=== PATIENT | female | born 1935 | race Caucasian/White ===

== ENCOUNTER 2017-06-13 18:54 | Inpatient (IN) | payer MEDICARE ==
[~2017-06-13] VITALS: Ht 157.5 cm; Wt 79.0 kg
[~2017-06-13 18:54] MED LIST: ACET-2782 PO; CEPH500T PO; TRAM-355 PO
[2017-06-13 19:46] LABS: BASOPHILS % (AUTO) 0.3 % (0.0-5.0); EOSINOPHILS % (AUTO) 0.1 % (0.0-8.0); HEMATOCRIT 40.3 % (36-48); LYMPHOCYTES % (AUTO) 5.2 % (21.0-51.0); MEAN CORPUSCULAR HEMOGLOBIN 30.2 pg (27.0-33.0); MEAN CORPUSCULAR HGB CONC 33.8 g/dL (32.0-36.0); MEAN CORPUSCULAR VOLUME 89.2 fL (79-99); MONOCYTES % (AUTO) 2.7 % (3.0-13.0); NEUTROPHILS % (AUTO) 91.7 % (40.0-77.0); PLATELET COUNT (AUTO) 265 K/uL (130-400); RED BLOOD CELL COUNT(AUTO) 4.52 MIL/uL (4.00-5.50); RED CELL DISTRIBUTION WIDTH 13.8 % (11.0-15.5); WHITE BLOOD COUNT (AUTO) 16.5 K/uL (4.8-10.8)
[2017-06-13] MEDS ORDERED: ONDANSETRON HCL 4 MG/2 ML VIAL ONE ×2 (19:51→22:36)
[2017-06-13] MEDS ORDERED: ACETAMINOPHEN EXTRA STRENGTH 500 MG TABLET ONE (19:52)
[2017-06-13] MEDS ORDERED: SODIUM CHLORIDE 0.9% 1000ML 3,000 ML IV ONE (19:52)
[2017-06-13 19:56] LABS: INR 1.15 (0.85-1.15)
[2017-06-13 20:01] LABS: CREATININE 1.2 mg/dL (0.5-1.5); POTASSIUM 4.5 mmol/L (3.5-5.1)
[2017-06-13 20:04] LABS: ALBUMIN 2.9 g/dL (3.5-5.0); TOTAL PROTEIN, SERUM 8.1 g/dL (6.0-8.3)
[2017-06-13] MEDS ORDERED: ZOSYN 3.375GM+NS 50ML 50 ML IV ONE (20:35)
[2017-06-13] MEDS ORDERED: LIDOCAINE HCL 2% JELLY 5 ML ONE (22:01)
[2017-06-13] MEDS ORDERED: MORPHINE SULFATE 4 MG/1ML SYG ONE (22:36)
[2017-06-13] MEDS ORDERED: HYDRALAZINE HCL 20 MG/ML VIAL IV PRN (23:45)
[2017-06-14] VITALS (7 sets, daily range): BP systolic 113–143; BP diastolic 52–79
[2017-06-14] MEDS: SODIUM CHLORIDE 0.9% 1000ML 1,000 ML IV SCH ×3 (01:13→20:02)
[2017-06-14] MEDS: ZOSYN 3.375GM+NS 50ML 50 ML IV SCH ×3 (04:53→20:02)
[2017-06-14] MEDS ORDERED: ZOSYN 3.375GM+NS 50ML 50 ML IV SCH (05:00)
[2017-06-14] MEDS: FAMOTIDINE/PF 20 MG/2 ML VIAL IV SCH ×2 (09:27→20:02)
[2017-06-14 09:30] LABS: HEMATOCRIT 35.3 % (36-48); MEAN CORPUSCULAR HEMOGLOBIN 30.9 pg (27.0-33.0); MEAN CORPUSCULAR HGB CONC 34.1 g/dL (32.0-36.0); MEAN CORPUSCULAR VOLUME 90.5 fL (79-99); PLATELET COUNT (AUTO) 246 K/uL (130-400); RED CELL DISTRIBUTION WIDTH 13.9 % (11.0-15.5); WHITE BLOOD COUNT (AUTO) 11.8 K/uL (4.8-10.8)
[2017-06-14 09:37] LABS: CREATININE 0.9 mg/dL (0.5-1.5); POTASSIUM 3.7 mmol/L (3.5-5.1)
[2017-06-14] MEDS: MORPHINE SULFATE 2 MG/ML 1ML SYG IV PRN ×2 (10:09→20:13)
[2017-06-14] MEDS ORDERED: BISACODYL 10 MG SUPP.RECT RC SCH (12:30)
[2017-06-14 18:44] LABS: APPEARANCE,URINE Clear (CLEAR); BILIRUBIN,URINE Negative (NEGATIVE); COLOR,URINE Yellow (YELLOW); GLUCOSE, URINE (UA) Negative (NEGATIVE); KETONES,URINE 15 mg/dL (NEGATIVE); LEUKOCYTE ESTERASE ,URINE Negative (NEGATIVE); NITRATE,URINE Negative (NEGATIVE); OCCULT BLOOD,URINE Small (NEGATIVE); PH,URINE 5.5 (5.0-8.0); PROTEIN,URINE POS 1+ (NEGATIVE)
[2017-06-14 19:39] LABS: BACTERIA,URINE None Seen /HPF (None Seen); WBC,URINE 0-1 /HPF (0-1)
[2017-06-15 03:00] VITALS: BP 144/65
[2017-06-15] MEDS: ZOSYN 3.375GM+NS 50ML 50 ML IV SCH ×3 (03:56→20:49)
[2017-06-15] MEDS: SODIUM CHLORIDE 0.9% 1000ML 1,000 ML IV SCH ×2 (05:53→20:50)
[2017-06-15 07:58] LABS: BASOPHILS % (AUTO) 0.3 % (0.0-5.0); EOSINOPHILS % (AUTO) 0.2 % (0.0-8.0); HEMATOCRIT 38.4 % (36-48); MEAN CORPUSCULAR HEMOGLOBIN 30.4 pg (27.0-33.0); MEAN CORPUSCULAR HGB CONC 33.7 g/dL (32.0-36.0); MEAN CORPUSCULAR VOLUME 90.3 fL (79-99); MONOCYTES % (AUTO) 4.8 % (3.0-13.0); NEUTROPHILS % (AUTO) 82.7 % (40.0-77.0); PLATELET COUNT (AUTO) 314 K/uL (130-400); RED BLOOD CELL COUNT(AUTO) 4.25 MIL/uL (4.00-5.50); RED CELL DISTRIBUTION WIDTH 13.8 % (11.0-15.5); WHITE BLOOD COUNT (AUTO) 11.9 K/uL (4.8-10.8)
[2017-06-15 08:00] VITALS: BP 149/69
[2017-06-15 08:17] LABS: CREATININE 0.9 mg/dL (0.5-1.5); POTASSIUM 3.6 mmol/L (3.5-5.1)
[2017-06-15] MEDS: FAMOTIDINE/PF 20 MG/2 ML VIAL IV SCH ×2 (08:48→20:51)
[2017-06-15] MEDS ORDERED: MORPHINE SULFATE 4 MG/1ML SYG ONE (09:28)
[2017-06-15] MEDS: MORPHINE SULFATE 2 MG/ML 1ML SYG IV PRN ×2 (09:38→20:51)
[2017-06-15 12:09] VITALS: BP 137/68
[2017-06-15 16:00] VITALS: BP 150/75
[2017-06-15 19:00] VITALS: BP_SYST 139; BP_SYST 155; BP_DIAS 79; BP_DIAS 80
[2017-06-15] MEDS: OSELTAMIVIR PHOSPHATE 75 MG CAP PO SCH (20:51)
[2017-06-15 23:00] VITALS: BP 176/77
[2017-06-16] MEDS: SODIUM CHLORIDE 0.9% 1000ML 1,000 ML IV SCH ×4 (00:45→20:47)
[2017-06-16 03:00] VITALS: BP 158/77
[2017-06-16] MEDS: ZOSYN 3.375GM+NS 50ML 50 ML IV SCH ×3 (04:03→20:47)
[2017-06-16 08:00] VITALS: BP 145/72
[2017-06-16] MEDS: OSELTAMIVIR PHOSPHATE 75 MG CAP PO SCH ×2 (08:59→20:47)
[2017-06-16] MEDS: FAMOTIDINE/PF 20 MG/2 ML VIAL IV SCH ×2 (08:59→20:47)
[2017-06-16 12:00] VITALS: BP 145/68
[2017-06-16 16:00] VITALS: BP 153/62
[2017-06-16] MEDS: MORPHINE SULFATE 2 MG/ML 1ML SYG IV PRN (16:52)
[2017-06-16 19:55] VITALS: BP 154/76
[2017-06-16] MEDS: GUAIFENESIN-DM 200/20 MG 10 ML PO PRN (20:47)
[2017-06-16 23:31] VITALS: BP 137/82
[2017-06-17] VITALS (12 sets, daily range): BP systolic 131–169; BP diastolic 55–78
[2017-06-17] MEDS: ZOSYN 3.375GM+NS 50ML 50 ML IV SCH ×3 (03:44→22:38)
[2017-06-17 04:17] LABS: BASOPHILS % (AUTO) 0.3 % (0.0-5.0); EOSINOPHILS % (AUTO) 0.5 % (0.0-8.0); LYMPHOCYTES % (AUTO) 11.8 % (21.0-51.0); MEAN CORPUSCULAR HEMOGLOBIN 30.8 pg (27.0-33.0); MEAN CORPUSCULAR HGB CONC 34.2 g/dL (32.0-36.0); MEAN CORPUSCULAR VOLUME 90.1 fL (79-99); NEUTROPHILS % (AUTO) 81.4 % (40.0-77.0); NUCLEATED RED BLOOD CELLS 0.1 % (0.0-0.19); PLATELET COUNT (AUTO) 294 K/uL (130-400); RED BLOOD CELL COUNT(AUTO) 3.89 MIL/uL (4.00-5.50); RED CELL DISTRIBUTION WIDTH 13.6 % (11.0-15.5)
[2017-06-17 04:24] LABS: CREATININE 0.7 mg/dL (0.5-1.5)
[2017-06-17 04:25] LABS: POTASSIUM 2.8 mmol/L (3.5-5.1)
[2017-06-17] MEDS ORDERED: POTASSIUM CHLORIDE 20MEQ/100ML 100 ML IV PRN (05:15)
[2017-06-17] MEDS ORDERED: LIDOCAINE HCL-MPF 1% 2ML VIAL IVP PRN (05:15)
[2017-06-17] MEDS ORDERED: POTASSIUM CHLORIDE 10% ELIXIR 20 MEQ/15 ML UDCUP PO PRN (05:15)
[2017-06-17] MEDS ORDERED: LIDOCAINE HCL-MPF 1% 2ML VIAL ONE (05:17)
[2017-06-17] MEDS ORDERED: POTASSIUM CHLORIDE 20MEQ/100ML 100 ML IV ONE (05:17)
[2017-06-17] MEDS: SODIUM CHLORIDE 0.9% 1000ML 1,000 ML IV SCH ×2 (05:25→22:39)
[2017-06-17] MEDS ORDERED: DIATR MEGLU/DIATRIZOATE SODIUM 30 ML BOTTLE PO ONE (06:00)
[2017-06-17] MEDS ORDERED: IOPAMIDOL-370 75 ML VIAL IV ONE (07:53)
[2017-06-17] MEDS: MORPHINE SULFATE 2 MG/ML 1ML SYG IV PRN ×2 (08:17→22:40)
[2017-06-17] MEDS: FAMOTIDINE/PF 20 MG/2 ML VIAL IV SCH ×2 (09:00→22:39)
[2017-06-17] MEDS: OSELTAMIVIR PHOSPHATE 75 MG CAP PO SCH ×2 (09:00→22:39)
[2017-06-17] MEDS ORDERED: FENTANYL CITRATE PF 50 MCG/1 ML 2ML VIAL ONE (13:57)
[2017-06-17] MEDS: POTASSIUM CHLORIDE 20 MEQ ERTAB PO PRN (22:42)
[2017-06-18 00:07] VITALS: BP 151/77
[2017-06-18] MEDS: POTASSIUM CHLORIDE 20 MEQ ERTAB PO PRN ×2 (01:50→04:59)
[2017-06-18 03:40] VITALS: BP 160/71
[2017-06-18] MEDS: SODIUM CHLORIDE 0.9% 1000ML 1,000 ML IV SCH ×2 (04:58→18:14)
[2017-06-18] MEDS: ZOSYN 3.375GM+NS 50ML 50 ML IV SCH ×3 (04:59→21:16)
[2017-06-18 08:00] VITALS: BP 139/75
[2017-06-18] MEDS: FAMOTIDINE/PF 20 MG/2 ML VIAL IV SCH ×2 (08:35→21:16)
[2017-06-18] MEDS: OSELTAMIVIR PHOSPHATE 75 MG CAP PO SCH ×2 (08:35→21:16)
[2017-06-18] MEDS ORDERED: LACTATED RINGERS 1000ML 1,000 ML IV SCH (10:00)
[2017-06-18] MEDS: GUAIFENESIN-DM 200/20 MG 10 ML PO PRN ×2 (10:53→21:26)
[2017-06-18 12:00] VITALS: BP 144/68
[2017-06-18 16:00] VITALS: BP 126/69
[2017-06-18 20:00] VITALS: BP 152/62
[2017-06-19] VITALS (8 sets, daily range): BP systolic 108–164; BP diastolic 60–80
[2017-06-19 03:57] LABS: BASOPHILS % (AUTO) 0.6 % (0.0-5.0); EOSINOPHILS % (AUTO) 0.6 % (0.0-8.0); HEMATOCRIT 34.7 % (36-48); LYMPHOCYTES % (AUTO) 13.5 % (21.0-51.0); MEAN CORPUSCULAR HEMOGLOBIN 30.7 pg (27.0-33.0); MEAN CORPUSCULAR VOLUME 90.2 fL (79-99); MONOCYTES % (AUTO) 4.9 % (3.0-13.0); NEUTROPHILS % (AUTO) 80.4 % (40.0-77.0); PLATELET COUNT (AUTO) 295 K/uL (130-400); RED BLOOD CELL COUNT(AUTO) 3.85 MIL/uL (4.00-5.50); RED CELL DISTRIBUTION WIDTH 13.8 % (11.0-15.5); WHITE BLOOD COUNT (AUTO) 10.7 K/uL (4.8-10.8)
[2017-06-19 04:04] LABS: CREATININE 0.7 mg/dL (0.5-1.5); MAGNESIUM 1.4 mg/dL (1.80-2.40)
[2017-06-19] MEDS: ZOSYN 3.375GM+NS 50ML 50 ML IV SCH ×3 (04:07→21:31)
[2017-06-19] MEDS: POTASSIUM CHLORIDE 20 MEQ ERTAB PO PRN (04:55)
[2017-06-19] MEDS: MORPHINE SULFATE 2 MG/ML 1ML SYG IV PRN (06:45)
[2017-06-19] MEDS: FAMOTIDINE/PF 20 MG/2 ML VIAL IV SCH ×2 (09:38→21:30)
[2017-06-19] MEDS: OSELTAMIVIR PHOSPHATE 75 MG CAP PO SCH ×2 (09:39→21:31)
[2017-06-19] MEDS: ACETAMINOPHEN-CODEINE 300/30MG TAB PO PRN ×2 (13:21→21:30)
[2017-06-19] MEDS: GUAIFENESIN-DM 200/20 MG 10 ML PO PRN ×2 (13:21→21:30)
[2017-06-19] MEDS ORDERED: MAGNESIUM 2GM PREMIX 50ML 50 ML IV NR (16:00)
[2017-06-20 04:00] VITALS: BP 147/76
[2017-06-20] MEDS: ZOSYN 3.375GM+NS 50ML 50 ML IV SCH ×3 (04:28→22:19)
[2017-06-20 07:03] LABS: CREATININE 0.8 mg/dL (0.5-1.5); MAGNESIUM 1.8 mg/dL (1.80-2.40); POTASSIUM 3.2 mmol/L (3.5-5.1)
[2017-06-20 08:00] VITALS: BP 145/71
[2017-06-20] MEDS: FAMOTIDINE/PF 20 MG/2 ML VIAL IV SCH ×2 (09:53→22:19)
[2017-06-20] MEDS: OSELTAMIVIR PHOSPHATE 75 MG CAP PO SCH (09:53)
[2017-06-20 11:00] VITALS: BP 145/71
[2017-06-20] MEDS: POTASSIUM CHLORIDE 20 MEQ ERTAB PO PRN ×3 (13:24→18:35)
[2017-06-20] MEDS ORDERED: TRAMADOL HCL 50 MG TABLET PO PRN (18:45)
[2017-06-20] MEDS ORDERED: BENZONATATE 100 MG CAPSULE PO PRN (18:45)
[2017-06-20] MEDS ORDERED: LACTULOSE 20 GM/30 ML UDCUP PO PRN (18:45)
[2017-06-20 20:00] VITALS: BP 141/68
[2017-06-20] MEDS: ACETAMINOPHEN-CODEINE 300/30MG TAB PO PRN (22:19)
[2017-06-20] MEDS: GUAIFENESIN-DM 200/20 MG 10 ML PO PRN (22:19)
[2017-06-21] VITALS (7 sets, daily range): BP systolic 122–156; BP diastolic 67–82
[2017-06-21] MEDS: ZOSYN 3.375GM+NS 50ML 50 ML IV SCH ×2 (05:37→14:29)
[2017-06-21] MEDS: FAMOTIDINE/PF 20 MG/2 ML VIAL IV SCH (10:33)
[2017-06-21] MEDS ORDERED: DIATR MEGLU/DIATRIZOATE SODIUM 30 ML BOTTLE PO ONE (10:36)
[2017-06-21] MEDS ORDERED: IOPAMIDOL-370 75 ML VIAL IV ONE ×2 (15:49→15:53)
[2017-06-21] MEDS: LEVOFLOXACIN 500 MG TABLET PO SCH (21:01)
[2017-06-22 04:25] VITALS: BP 155/67
[2017-06-22 08:00] VITALS: BP 132/68
[2017-06-22] MEDS: FAMOTIDINE/PF 20 MG/2 ML VIAL IV SCH (10:39)
[2017-06-22] MEDS: GUAIFENESIN-DM 200/20 MG 10 ML PO PRN ×2 (10:39→21:44)
[2017-06-22 11:00] VITALS: BP 126/65
[2017-06-22 16:00] VITALS: BP 135/69
[2017-06-22 20:18] VITALS: BP 145/77
[2017-06-22] MEDS: LEVOFLOXACIN 500 MG TABLET PO SCH (21:43)
[2017-06-22 23:13] VITALS: BP 151/61
[2017-06-23 03:15] VITALS: BP 145/69
[2017-06-23 07:00] VITALS: BP 136/69
[2017-06-23] MEDS: GUAIFENESIN-DM 200/20 MG 10 ML PO PRN (08:39)
[2017-06-23] MEDS: FAMOTIDINE/PF 20 MG/2 ML VIAL IV SCH (08:39)
[2017-06-23 11:00] VITALS: BP 145/71
[2017-06-23 16:00] VITALS: BP 141/75
== END 2017-06-23 16:40 | disposition home or self-care (01) | DRG 872 ==
LOC: EDH 18:54 → EDHIP 23:44 → 3BH 06-14 00:40
PROVIDERS: ADMIT Family Medicine; ATTEND Family Medicine
PROC: 0D9670Z Drainage of Stomach with Drainage Device, Via Natural or Artificial Opening (ICD-10-PCS; 2017-06-13)
PROC: 0W9G30Z Drainage of Peritoneal Cavity with Drainage Device, Percutaneous Approach (ICD-10-PCS; principal; 2017-06-17)
DX: A41.9 Sepsis, unspecified organism (principal); K56.609 Unspecified intestinal obstruction, unspecified as to partial versus complete obstruction; K57.20 Diverticulitis of large intestine with perforation and abscess without bleeding; E44.1 Mild protein-calorie malnutrition; K81.9 Cholecystitis, unspecified; J10.1 Influenza due to other identified influenza virus with other respiratory manifestations; E87.6 Hypokalemia; K57.30 Diverticulosis of large intestine without perforation or abscess without bleeding; I10 Essential (primary) hypertension; Z68.31 Body mass index [BMI] 31.0-31.9, adult; J20.9 Acute bronchitis, unspecified; E66.9 Obesity, unspecified; B96.20 Unspecified Escherichia coli [E. coli] as the cause of diseases classified elsewhere; Z90.49 Acquired absence of other specified parts of digestive tract; Z83.3 Family history of diabetes mellitus; Z82.49 Family history of ischemic heart disease and other diseases of the circulatory system; Z80.3 Family history of malignant neoplasm of breast; Z79.82 Long term (current) use of aspirin
CPT/HCPCS: 10030; 36415; 71010; 74018; 74021; 74176; 74177; 77012; 80048; 80053; 81001; 83605; 83690; 83735; 85025; 85027; 85610; 85730; 87040; 87071; 87088; 87205; 87804; 93005; 99291; J2270; J2405; J2543; J3010; J3475; J3480; J3490; J7030; Q9963; Q9967

== ENCOUNTER 2017-07-01 09:18 | Inpatient (IN) | payer MEDICARE ==
[~2017-07-01] VITALS: Ht 152.4 cm; Wt 77.1 kg
[2017-07-01] MEDS ORDERED: MEROPENEM 1 GM VIAL ONE ×2 (10:12→20:47)
[2017-07-01] MEDS ORDERED: SODIUM CHLORIDE 0.9% 1000ML 1,000 ML IV ONE ×3 (10:13→17:54)
[2017-07-01 10:18] LABS: APPEARANCE,URINE Cloudy (CLEAR); BILIRUBIN,URINE Small (NEGATIVE); COLOR,URINE Orange (YELLOW); GLUCOSE, URINE (UA) Negative (NEGATIVE); KETONES,URINE Trace mg/dL (NEGATIVE); LEUKOCYTE ESTERASE ,URINE Moderate (NEGATIVE); NITRATE,URINE Positive (NEGATIVE); OCCULT BLOOD,URINE Small (NEGATIVE); PROTEIN,URINE POS 1+ (NEGATIVE)
[2017-07-01 10:18] LABS: BASOPHILS % (AUTO) 0.5 % (0.0-5.0); HEMATOCRIT 33.2 % (36-48); MEAN CORPUSCULAR HEMOGLOBIN 30.3 pg (27.0-33.0); MEAN CORPUSCULAR HGB CONC 33.9 g/dL (32.0-36.0); MEAN CORPUSCULAR VOLUME 89.4 fL (79-99); MONOCYTES % (AUTO) 8.5 % (3.0-13.0); NEUTROPHILS % (AUTO) 83.4 % (40.0-77.0); NUCLEATED RED BLOOD CELLS 0.1 % (0.0-0.19); PLATELET COUNT (AUTO) 357 K/uL (130-400); RED BLOOD CELL COUNT(AUTO) 3.71 MIL/uL (4.00-5.50); RED CELL DISTRIBUTION WIDTH 13.8 % (11.0-15.5); WHITE BLOOD COUNT (AUTO) 14.6 K/uL (4.8-10.8)
[2017-07-01 10:26] LABS: LYMPHOCYTES % (AUTO) 7.6 % (21.0-51.0)
[2017-07-01 10:38] LABS: CREATININE 1.2 mg/dL (0.5-1.5); POTASSIUM 4.4 mmol/L (3.5-5.1)
[2017-07-01 10:38] LABS: BACTERIA,URINE Few /HPF (None Seen); RBC,URINE 0-1 /HPF (0-1); SQUAMOUS EPITHELIAL CELL,UR Moderate /LPF (0-2); YEAST,URINE BUDDING Few /HPF (None Seen)
[2017-07-01 10:39] LABS: MUCUS,URINE Many LPF (None Seen)
[2017-07-01 10:42] LABS: ALBUMIN 2.7 g/dL (3.5-5.0); BILIRUBIN,TOTAL 0.9 mg/dL (0.2-1.0); TOTAL PROTEIN, SERUM 7.3 g/dL (6.0-8.3)
[2017-07-01] MEDS ORDERED: IOPAMIDOL-370 75 ML VIAL IV ONE (10:56)
[2017-07-01] MEDS ORDERED: ACETAMINOPHEN EXTRA STRENGTH 500 MG TABLET ONE (16:49)
[2017-07-01] MEDS ORDERED: METRONIDAZOLE 500MG/100ML BAG 100 ML ONE (17:54)
[2017-07-01 22:07] VITALS: BP 118/56
[2017-07-01] MEDS: SODIUM CHLORIDE 0.9% 1000ML 1,000 ML IV SCH (23:00)
[2017-07-01 23:56] VITALS: BP 108/56
[2017-07-02] VITALS (11 sets, daily range): BP systolic 104–150; BP diastolic 50–69
[2017-07-02] MEDS ORDERED: HYDRALAZINE HCL 20 MG/ML VIAL IV PRN
[2017-07-02] MEDS: METRONIDAZOLE 500MG/100ML BAG 100 ML IVPB SCH ×3 (02:10→18:22)
[2017-07-02] MEDS: MEROPENEM 1 GM VIAL IVP SCH ×3 (02:10→18:22)
[2017-07-02 09:10] LABS: INR 1.3 (0.85-1.15); PARTIAL THROMBOPLASTIN TIME 30.2 SEC (26.3-35.5); PROTHROMBIN TIME 13.6 SEC (9.6-11.6)
[2017-07-02] MEDS: PANTOPRAZOLE SODIUM 40 MG TABLET.DR PO SCH (09:22)
[2017-07-02] MEDS: ACETAMINOPHEN 325 MG TAB PO PRN ×2 (11:39→20:44)
[2017-07-02] MEDS: SODIUM CHLORIDE 0.9% 1000ML 1,000 ML IV SCH ×2 (12:02→20:44)
[2017-07-02] MEDS ORDERED: FENTANYL CITRATE PF 50 MCG/1 ML 2ML VIAL ONE (12:32)
[2017-07-02] MEDS ORDERED: MIDAZOLAM HCL 1 MG/ML 2ML VIAL ONE (12:32)
[2017-07-03] VITALS: BP 112/50
[2017-07-03] MEDS: METRONIDAZOLE 500MG/100ML BAG 100 ML IVPB SCH ×3 (02:41→18:15)
[2017-07-03] MEDS: MEROPENEM 1 GM VIAL IVP SCH ×3 (02:41→18:15)
[2017-07-03 04:00] VITALS: BP 124/64
[2017-07-03 08:00] VITALS: BP 124/56
[2017-07-03] MEDS ORDERED: WATER FOR INJECTION,STERILE 5 ML VIAL ONE (09:18)
[2017-07-03] MEDS: PANTOPRAZOLE SODIUM 40 MG TABLET.DR PO SCH (09:34)
[2017-07-03] MEDS: SODIUM CHLORIDE 0.9% 1000ML 1,000 ML IV SCH (09:41)
[2017-07-03 12:00] VITALS: BP 125/64
[2017-07-03 16:03] VITALS: BP 134/65
[2017-07-03 19:00] VITALS: BP 132/60
[2017-07-04] VITALS (7 sets, daily range): BP systolic 119–139; BP diastolic 55–70
[2017-07-04] MEDS: METRONIDAZOLE 500MG/100ML BAG 100 ML IVPB SCH ×3 (02:21→17:40)
[2017-07-04] MEDS: SODIUM CHLORIDE 0.9% 1000ML 1,000 ML IV SCH ×2 (02:21→17:40)
[2017-07-04] MEDS: MEROPENEM 1 GM VIAL IVP SCH ×3 (02:21→17:40)
[2017-07-04] MEDS: PANTOPRAZOLE SODIUM 40 MG TABLET.DR PO SCH (09:22)
[2017-07-05] MEDS: MEROPENEM 1 GM VIAL IVP SCH ×3 (02:34→18:34)
[2017-07-05] MEDS: METRONIDAZOLE 500MG/100ML BAG 100 ML IVPB SCH ×3 (02:34→18:34)
[2017-07-05 03:40] VITALS: BP 156/74
[2017-07-05] MEDS: SODIUM CHLORIDE 0.9% 1000ML 1,000 ML IV SCH ×2 (07:00→23:51)
[2017-07-05 07:30] VITALS: BP 141/67
[2017-07-05 11:00] VITALS: BP 132/71
[2017-07-05] MEDS: PANTOPRAZOLE SODIUM 40 MG TABLET.DR PO SCH (11:39)
[2017-07-05] MEDS: ACETAMINOPHEN 325 MG TAB PO PRN ×2 (11:58→23:46)
[2017-07-05] MEDS ORDERED: VANCOMYCIN PROTOCOL PER PHARMACY IV SCH (15:00)
[2017-07-05 16:00] VITALS: BP 133/68
[2017-07-05] MEDS: FLUCONAZOLE 100 MG TAB PO SCH (16:51)
[2017-07-05] MEDS: VANCOMYCIN 500MG+NS 100ML 100 ML IV SCH (16:56)
[2017-07-05 19:00] VITALS: BP 131/63
[2017-07-05 23:00] VITALS: BP 143/62
[2017-07-06] MEDS: METRONIDAZOLE 500MG/100ML BAG 100 ML IVPB SCH ×3 (02:55→16:44)
[2017-07-06] MEDS: MEROPENEM 1 GM VIAL IVP SCH ×3 (02:55→16:35)
[2017-07-06 03:00] VITALS: BP 130/70
[2017-07-06 05:27] LABS: HEMATOCRIT 32.1 % (36-48); MEAN CORPUSCULAR HEMOGLOBIN 31.3 pg (27.0-33.0); MEAN CORPUSCULAR HGB CONC 35.4 g/dL (32.0-36.0); MEAN CORPUSCULAR VOLUME 88.4 fL (79-99); NUCLEATED RED BLOOD CELLS 0.1 % (0.0-0.19); PLATELET COUNT (AUTO) 371 K/uL (130-400); RED BLOOD CELL COUNT(AUTO) 3.63 MIL/uL (4.00-5.50); RED CELL DISTRIBUTION WIDTH 14.3 % (11.0-15.5); WHITE BLOOD COUNT (AUTO) 7.9 K/uL (4.8-10.8)
[2017-07-06 05:37] LABS: CREATININE 0.9 mg/dL (0.5-1.5); POTASSIUM 3.1 mmol/L (3.5-5.1)
[2017-07-06 05:39] LABS: BAND NEUTROPHILS % (MANUAL) 6 % (0-2); EOSINOPHILS % (MANUAL) 1 % (1-6); LYMPHOCYTES % (MANUAL) 15 % (22-44); MAN.DIFF COMMENT-IMPRESSION MANUAL DIFFERENTIAL; MONOCYTES % (MANUAL) 3 % (2-9); PLATELET MORPHOLOGY COMMENT ADEQUATE; SEGMENTED NEUTROPHILS % 75 % (40-70)
[2017-07-06] MEDS: VANCOMYCIN 500MG+NS 100ML 100 ML IV SCH (05:52)
[2017-07-06 07:16] VITALS: BP_SYST 114; BP_SYST 120; BP_DIAS 63; BP_DIAS 74
[2017-07-06] MEDS: SODIUM CHLORIDE 0.9% 1000ML 1,000 ML IV SCH ×2 (09:40→16:44)
[2017-07-06] MEDS: PANTOPRAZOLE SODIUM 40 MG TABLET.DR PO SCH (10:47)
[2017-07-06] MEDS: ACETAMINOPHEN 325 MG TAB PO PRN (10:50)
[2017-07-06 11:50] VITALS: BP 133/70
[2017-07-06 15:53] VITALS: BP 126/57
[2017-07-06] MEDS: FLUCONAZOLE 100 MG TAB PO SCH (16:42)
[2017-07-06 19:00] VITALS: BP 133/65
[2017-07-06] MEDS ORDERED: LIDOCAINE HCL-MPF 1% 2ML VIAL IVP PRN (19:45)
[2017-07-06] MEDS ORDERED: POTASSIUM CHLORIDE 20MEQ/100ML 100 ML IV PRN (19:45)
[2017-07-06] MEDS ORDERED: POTASSIUM CHLORIDE 10% ELIXIR 20 MEQ/15 ML UDCUP PO PRN (19:45)
[2017-07-06] MEDS ORDERED: VANCOMYCIN 1.25 GM in SODIUM CHLORIDE 0.9% 250 ML IV ONE (20:00)
[2017-07-06] MEDS: POTASSIUM CHLORIDE 20 MEQ ERTAB PO PRN (21:56)
[2017-07-06 23:00] VITALS: BP 152/76
[2017-07-07] MEDS: POTASSIUM CHLORIDE 20 MEQ ERTAB PO PRN (00:06)
[2017-07-07] MEDS: MEROPENEM 1 GM VIAL IVP SCH ×3 (01:38→17:45)
[2017-07-07] MEDS: METRONIDAZOLE 500MG/100ML BAG 100 ML IVPB SCH ×3 (01:38→17:45)
[2017-07-07 03:00] VITALS: BP 147/77
[2017-07-07 08:00] VITALS: BP 139/65
[2017-07-07] MEDS ORDERED: VANCOMYCIN 1GM+NS 250ML 250 ML IV SCH (08:00)
[2017-07-07] MEDS: PANTOPRAZOLE SODIUM 40 MG TABLET.DR PO SCH (08:35)
[2017-07-07] MEDS: SODIUM CHLORIDE 0.9% 1000ML 1,000 ML IV SCH (10:50)
[2017-07-07 12:00] VITALS: BP 109/64
[2017-07-07 16:00] VITALS: BP 127/58
[2017-07-07] MEDS: FLUCONAZOLE 100 MG TAB PO SCH (17:45)
== END 2017-07-07 20:40 | DRG 872 ==
LOC: EDH 09:18 → EDHIP 17:35 → 3CH 22:08
PROVIDERS: ADMIT Family Medicine; ATTEND Family Medicine
PROC: 0D9W30Z Drainage of Peritoneum with Drainage Device, Percutaneous Approach (ICD-10-PCS; principal; 2017-07-02)
DX: A41.9 Sepsis, unspecified organism (principal); E87.1 Hypo-osmolality and hyponatremia; K57.90 Diverticulosis of intestine, part unspecified, without perforation or abscess without bleeding; I10 Essential (primary) hypertension; Z16.24 Resistance to multiple antibiotics; Z90.49 Acquired absence of other specified parts of digestive tract; Z80.3 Family history of malignant neoplasm of breast; Z82.49 Family history of ischemic heart disease and other diseases of the circulatory system; Z83.3 Family history of diabetes mellitus
CPT/HCPCS: 36415; 49406; 71045; 74177; 77012; 80048; 80053; 80202; 81001; 82150; 82948; 83605; 83690; 84132; 85025; 85610; 85730; 87040; 87071; 87177; 87205; 87804; 93005; A4218; J2185; J2250; J3010; J3370; J3490; J7030; Q9967

== ENCOUNTER 2017-07-20 06:47 | Day surgery (SDC) | payer OTHER, MEDICARE ==
[~2017-07-20] VITALS: Ht 152.4 cm; Wt 77.1 kg
[2017-07-20 07:34] VITALS: BP 143/61
[2017-07-20] MEDS ORDERED: SODIUM CHLORIDE 0.9% 1000ML 1,000 ML IV ONE (08:04)
[2017-07-20] MEDS ORDERED: ISOVUE-300 100 ML VIAL IV ONE (09:32)
[2017-07-20] MEDS ORDERED: LIDOCAINE HCL 2% 20ML ONE (09:32)
[2017-07-20] MEDS ORDERED: SODIUM BICARB 50MEQ 50ML VIAL ONE (09:32)
[2017-07-20 10:15] VITALS: BP 134/65
[2017-07-20 10:31] VITALS: BP 113/45
[2017-07-20 10:47] VITALS: BP 146/73
[2017-07-20 11:00] VITALS: BP 148/85
[2017-07-20 11:16] VITALS: BP 139/70
== END 2017-07-20 12:24 | disposition short-term general hospital (02) ==
LOC: DAH 06:47
PROVIDERS: ATTEND Internal Medicine Infectious Disease
DX: K57.20 Diverticulitis of large intestine with perforation and abscess without bleeding (principal)
CPT/HCPCS: 49424; 74176; 76080; J7030; Q9967; J3490